=== PATIENT | female | born 1950 | race Caucasian/White ===

== ENCOUNTER 2016-10-13 20:04 | Emergency (ER) | payer OTHER ==
[~2016-10-13 20:04] MED LIST: ANT12.5 PO; ASPIR 8181 MG PO; FOS10 PO; LAC PO; MACROBID100 MG PO; OSCD PO; PRI20 PO; ZOC20 PO
[2016-10-13 21:56] VITALS: BP 134/75
== END 2016-10-13 21:56 | disposition home or self-care (01) ==
LOC: ED 20:04
DX: M54.5 Low back pain (principal); Z86.73 Personal history of transient ischemic attack (TIA), and cerebral infarction without residual deficits; Z98.51 Tubal ligation status; Z79.899 Other long term (current) drug therapy
CPT/HCPCS: J1885

== ENCOUNTER 2017-01-19 09:38 | Observation (INO) | payer OTHER ==
[~2017-01-19] VITALS: Ht 154.9 cm; Wt 68.3 kg
[2017-01-19 10:41] LABS: BASOPHIL % 0.4 % (0-2); PLATELET COUNT 228 x10^3mcL (130-400); RED CELL DISTRIBUTION WIDTH 12.8 % (11.5-14.5)
[2017-01-19 10:54] LABS: CALCIUM 8.9 mg/dL (8.5-10.1); CARBON DIOXIDE 29.6 mmol/L (21-32); CHLORIDE SERUM 105 mmol/L (98-107); CREATININE SERUM 0.8 mg/dL (0.6-1.0); GFR1 > 60 mL/min; GLUCOSE SERUM 116 mg/dL (74-106); POTASSIUM SERUM 3.6 mmol/L (3.5-5.1); SODIUM SERUM 142 mmol/L (136-145)
[2017-01-19 13:24] LABS: CHOLESTEROL/HDL RATIO 3.7; MAGNESIUM 2.3 mg/dL (1.8-2.4); PHOSPHOROUS 3.5 mg/dL (2.5-4.9)
[2017-01-19 13:28] LABS: T3 TOTAL 1.04 ng/mL
[2017-01-19 13:31] LABS: FREE T4 0.98 ng/dL (0.76-1.46); FREE THYROXINE INDEX 2.5 ug/dL (1.4-4.5); T4(THYROXINE) 7.2 ug/dL (4.7-13.3)
[2017-01-19 13:33] VITALS: BP 126/62
[2017-01-19 17:57] VITALS: BP 135/57
[2017-01-19 19:32] LABS: UA SPECIFIC GRAVITY <=1.005 (1.005-1.035); microscopic required? YES; urine erythrocyte NEGATIVE (NEGATIVE)
[2017-01-19 19:46] LABS: AMPHETAMINE QUAL UR NONE DETECTED (NEG <=1000)
[2017-01-19 22:12] VITALS: BP 113/49
[2017-01-20 03:38] LABS: PLATELET COUNT 226 x10^3mcL (130-400); RED CELL DISTRIBUTION WIDTH 11.8 % (11.5-14.5)
[2017-01-20 05:53] VITALS: BP 120/58
[2017-01-20 09:17] VITALS: BP 94/58
[2017-01-20 09:21] VITALS: BP 94/58
[2017-01-20] MEDS ORDERED: LIPI10 PO (09:29)
[2017-01-20 13:23] VITALS: BP 127/58
== END 2017-01-20 13:55 | disposition home or self-care (01) | DRG 313 ==
LOC: ED 09:38 → DU 11:23
PROVIDERS: Emergency Medicine; ADMIT Family Medicine
DX: R07.9 Chest pain, unspecified (principal); J98.11 Atelectasis; K21.9 Gastro-esophageal reflux disease without esophagitis; M94.0 Chondrocostal junction syndrome [Tietze]; I10 Essential (primary) hypertension; R73.03 Prediabetes; E78.1 Pure hyperglyceridemia; Z68.28 Body mass index [BMI] 28.0-28.9, adult; Z86.73 Personal history of transient ischemic attack (TIA), and cerebral infarction without residual deficits; Z79.82 Long term (current) use of aspirin
CPT/HCPCS: 82962; 83880; 84439; G0378; J0696; J1885; J7030

== ENCOUNTER 2017-10-04 12:36 | Emergency (ER) | payer OTHER ==
[~2017-10-04] VITALS: Ht 162.6 cm; Wt 63.5 kg
[~2017-10-04 12:36] MED LIST changes: +LIPI10 PO
[2017-10-04 12:46] VITALS: Ht 162.6 cm; Wt 63.5 kg
[2017-10-04 13:44] VITALS: BP 136/64
== END 2017-10-04 14:00 | disposition home or self-care (01) ==
LOC: ED 12:36
DX: S01.111A Laceration without foreign body of right eyelid and periocular area, initial encounter (principal); S60.221A Contusion of right hand, initial encounter; S80.01XA Contusion of right knee, initial encounter; M19.90 Unspecified osteoarthritis, unspecified site; W22.8XXA Striking against or struck by other objects, initial encounter; Y93.89 Activity, other specified; Y92.89 Other specified places as the place of occurrence of the external cause; Y99.8 Other external cause status
CPT/HCPCS: 90715; J2001

== ENCOUNTER 2017-10-11 08:54 | Emergency (ER) | payer OTHER ==
[~2017-10-11] VITALS: Ht 152.4 cm; Wt 64.0 kg
[2017-10-11 09:02] VITALS: BP 107/79; Ht 152.4 cm; Wt 64.0 kg
== END 2017-10-11 10:26 | disposition home or self-care (01) ==
LOC: ED 08:54
DX: S01.112D Laceration without foreign body of left eyelid and periocular area, subsequent encounter (principal); M19.90 Unspecified osteoarthritis, unspecified site; X58.XXXD Exposure to other specified factors, subsequent encounter

== ENCOUNTER 2018-11-22 23:05 | Emergency (ER) | payer OTHER ==
[~2018-11-22] VITALS: Ht 154.9 cm; Wt 61.2 kg
[2018-11-22 23:08] VITALS: Ht 154.9 cm; Wt 61.2 kg
[2018-11-23 00:46] LABS: BASOPHIL % 0.4 % (0-2); PLATELET COUNT 193 x10^3mcL (130-400); RED CELL DISTRIBUTION WIDTH 13.4 % (11.5-14.5)
[2018-11-23 01:08] LABS: CALCIUM 9.1 mg/dL (8.5-10.1); CARBON DIOXIDE 23.3 mmol/L (21-32); CHLORIDE SERUM 110 mmol/L (98-107); CREATININE SERUM 0.6 mg/dL (0.6-1.0); GFR1 > 60 mL/min; GLUCOSE SERUM 95 mg/dL (74-106); POTASSIUM SERUM 4.4 mmol/L (3.5-5.1); SODIUM SERUM 143 mmol/L (136-145)
[2018-11-23 01:13] LABS: ALBUMIN 3.6 g/dL (3.4-5.0); ALKALINE PHOSPHATASE 64 U/L (46-116); ALT/SGPT 18 U/L (14-59); AST/SGOT 10 U/L (15-37); BILIRUBIN TOTAL 0.49 mg/dL (0.20-1.00); TOTAL PROTEIN, SERUM 7.1 g/dL (6.4-8.2)
[2018-11-23 02:45] VITALS: BP 122/55
== END 2018-11-23 02:45 | disposition home or self-care (01) ==
LOC: ED 23:05
PROVIDERS: Specialist
DX: R60.9 Edema, unspecified (principal); M19.90 Unspecified osteoarthritis, unspecified site
CPT/HCPCS: 36415; 83880; Q0092